=== PATIENT | female | born 1960 | race Caucasian/White ===

== ENCOUNTER → 2024-07-22 | Outpatient (CLI) | payer OTHER ==
[2024-07-22 10:44] LABS: CREATININE SERUM 0.65 mg/dL (0.59-1.40); EST GFR, NON-AA 91.5 (>/=60)
== END | disposition home or self-care (01) ==
LOC: RAD 10:07
PROVIDERS: ATTEND Internal Medicine Cardiovascular Disease
DX: R07.9 Chest pain, unspecified (principal); I70.202 Unspecified atherosclerosis of native arteries of extremities, left leg; I70.291 Other atherosclerosis of native arteries of extremities, right leg; Z90.49 Acquired absence of other specified parts of digestive tract
CPT/HCPCS: 75635; 36415; 82565; Q9965

== ENCOUNTER → 2024-12-30 | Outpatient (CLI) | payer OTHER ==
[2024-12-30 14:44] LABS: CREATININE SERUM 0.78 mg/dL (0.59-1.40); EST GFR, NON-AA 74.1 (>/=60)
== END | disposition home or self-care (01) ==
LOC: RAD 13:55
PROVIDERS: ATTEND Internal Medicine Cardiovascular Disease
DX: I25.10 Atherosclerotic heart disease of native coronary artery without angina pectoris (principal); I70.0 Atherosclerosis of aorta; Z90.49 Acquired absence of other specified parts of digestive tract
CPT/HCPCS: 71275; 36415; 82565; Q9965

== ENCOUNTER → 2025-01-05 | Outpatient (CLI) | payer OTHER | END | disposition home or self-care (01) | LOC: RAD 12:19 | PROVIDERS: ATTEND Internal Medicine Cardiovascular Disease | DX: I65.23 Occlusion and stenosis of bilateral carotid arteries (principal); M79.601 Pain in right arm | CPT/HCPCS: 70498; Q9965 ==

== ENCOUNTER → 2025-01-20 | Outpatient (CLI) | payer OTHER | END | disposition home or self-care (01) | LOC: RAD 13:52 | PROVIDERS: ATTEND Internal Medicine Cardiovascular Disease | DX: I74.5 Embolism and thrombosis of iliac artery (principal); I70.203 Unspecified atherosclerosis of native arteries of extremities, bilateral legs; I70.1 Atherosclerosis of renal artery; I70.0 Atherosclerosis of aorta; I87.8 Other specified disorders of veins; I70.8 Atherosclerosis of other arteries; N28.1 Cyst of kidney, acquired; K55.1 Chronic vascular disorders of intestine; K57.30 Diverticulosis of large intestine without perforation or abscess without bleeding; R19.5 Other fecal abnormalities; Z90.49 Acquired absence of other specified parts of digestive tract | CPT/HCPCS: 75635; Q9965 ==

== ENCOUNTER → 2025-04-01 | Outpatient (CLI) | payer OTHER, SELFPAY ==
[2025-04-01] MEDS: LEXISCAN IV ONE (11:39)
== END | disposition home or self-care (01) ==
LOC: RAD 10:30
PROVIDERS: ATTEND Internal Medicine Cardiovascular Disease
DX: I25.118 Atherosclerotic heart disease of native coronary artery with other forms of angina pectoris (principal)
CPT/HCPCS: 78452; 93017; J2785; A9500